=== PATIENT | female | born 1985 | race Two or more races ===

== ENCOUNTER 2023-08-05 09:14 | Outpatient (AMB) | payer OTHER, SELFPAY ==
[2023-08-05 09:35] VITALS: BMI 34.3
--- NOTE | 2023-08-05 09:35 | A.OFFVIS_ITS ---
VS Expanded 08/05/23 09:35 08/11/23 10:28 Height 5 ft 4 in 5 ft 4 in Weight 199 lb 11.821 oz 200 lb BMI 34.3 34.3 Intake Visit Reasons: DM/CONFIRMED Nutrition Presentation Details: Pt presents for MNT for T2DM. Pt was referred by pcp Lamin Hernandez, from [facility] Reports she was on farxiga but i stopped it due to pain - Pt was advised to notify prescribing providers of symptoms of reasons for self discontinuing med BG record- not avail Typical meal B: sausage, eggs, crackers or toast or bagel, banana , grapes , coffee with caramel ([employer] ) L: crackers /beelvita , dinner: air fryer (wings, pork chop, steak - taco, or rice/beans , water snacks : mini sand etoh/smoking: denies physical activity: daily life activities Reports taking MVI, biotin, vit d, vitamin c an cranberry BS Monitoring Most Recent Diabetes Results: No Data to Display TQI-Okdulxc-Lu.Jeor Equation Height: 5 ft 4 in Weight: 200 lb Resting Metabolic Rate: 1574.32 Calculated Activity Level: Sedentary Calories Needed to Maintain Weight: 1889.18 Diagnosis Nutrition problem #1: food nutri know defi As related to (etiology) #1: diagnosis As evidenced by (sign/symptom) #1: knowledge deficit of diet Learning/Education Readiness to learn: good [facility] Medical History (Updated 08/11/23 @ 10:[address], LDN) Dyshidrotic eczema Type 2 diabetes mellitus with renal manifestations Surgical History (Updated 08/11/23 @ 10:[address], LDN) History of cholecystectomy Hx of appendectomy (~08/2019) Assessment & Plan Assessment & Plan (1) T2DM (type 2 diabetes mellitus): Code(s): E11.9 - Type 2 diabetes mellitus without complications Category: Medical Plan: Wt: 91 Kg ( 07/2023 ) Est kcal needs as per MSJ: 1900 (40% carb, 30% protein/fat) Est fluid needs as per 25-30 ml/d: 2700 Est prot per day as per 1 g/kg bw: 91 Recommend fiber intake : 8-10 g per day and gradually increase to 25-28 g per day for women and 35-38 g for men or as tolerated Recommend sodium intake per day : less than 1500 mg less than 2000 mg Educated patient on: ( R = reviewed V = verbalizes understanding N/R = needs review N/A = not applicable * Food sources of carbohydrate, adequate serving sizes and its role in various health conditions: R * Differences between complex carbohydrates a simple carbohydrates, role of fiber in diet: R V N/R * Lean protein sources of foods: R * Differences between types of fats and role in diet (mono on saturated fat fatty acids, saturated fatty acids, trans fats): R V N/R * Food sources of sodium in salt and healthy modifications for heart health in [facility]: R V R/V * Vitamins and minerals: R V N/R * Healthy plate method concept: R * Physical activity: Benefits a precaution: R * Hypoglycemia protocol (rule of 15): R V N/R * Dietary prevention of Hyperglycemia: R Patient Instructions: Work on reducing total carb to 45-60 g at meal following heathy plate method ,read food labels, measure food portions Drink water with meals, reducing sugars from beverages Coding Level of Care Code Nutr Indiv Intake (02944) Diagnoses T2DM (type 2 diabetes mellitus) E11.9 Time Spent (min) 30
[2023-08-11 10:28] VITALS: BMI 34.3
== END 2023-08-05 10:15 | disposition home or self-care (01) ==
PROVIDERS: Visit Provider Dietitian, Registered
DX: E11.9 Type 2 diabetes mellitus without complications (principal)

== ENCOUNTER → 2023-08-05 09:14 | Outpatient (BNVA) | payer OTHER, SELFPAY | PROVIDERS: Visit Provider Dietitian, Registered | DX: E11.29 Type 2 diabetes mellitus with other diabetic kidney complication (principal); E66.9 Obesity, unspecified; Z68.34 Body mass index [BMI] 34.0-34.9, adult | CPT/HCPCS: 97802 ==

== ENCOUNTER 2023-09-09 09:50 | Outpatient (AMB) | payer OTHER, SELFPAY ==
--- NOTE | 2023-09-09 09:59 | A.OFFVIS_ITS ---
VS Expanded 09/09/23 10:01 Height 5 ft 4 in Weight 201 lb 11.567 oz BMI 34.6 Intake Visit Reasons: DM-confirmed Nutrition Presentation Details: Pt presents for MNT f/u for T2DM Pt reports dietary indiscretion related to vacation Pt reports having discussed farxiga with prescribing provider and Pt reports resuming farxiga as per MD , now on 10 mg/d fluids: 64 oz/d fruits 2x./day fried foods: airfryer typically physical activity:daily life activities, at work > 6000 steps /day not monitoring BG BS Monitoring Most Recent Diabetes Results: No Data to Display [facility] Medical History (Updated 08/11/23 @ 10:[address], LDN) Dyshidrotic eczema Type 2 diabetes mellitus with renal manifestations Surgical History (Updated 08/11/23 @ 10:[address], LDN) History of cholecystectomy Hx of appendectomy (~08/2019) Assessment & Plan Assessment & Plan (1) T2DM (type 2 diabetes mellitus): Code(s): E11.9 - Type 2 diabetes mellitus without complications Category: Medical Plan: Wt: 91 Kg ( 07/2023 ), 08/2023 Est kcal needs as per MSJ: 1900 (40% carb, 30% protein/fat) Est fluid needs as per 25-30 ml/d: 2700 Est prot per day as per 1 g/kg bw: 91 Recommend fiber intake : 8-10 g per day and gradually increase to 25-28 g per day for women and 35-38 g for men or as tolerated Recommend sodium intake per day : less than 1500 mg less than 2000 mg Educated patient on: ( R = reviewed V = verbalizes understanding N/R = needs review N/A = not applicable * Food sources of carbohydrate, adequate serving sizes and its role in various health conditions: R * Differences between complex carbohydrates a simple carbohydrates, role of fiber in diet: R V N/R * Lean protein sources of foods: R * Differences between types of fats and role in diet (mono on saturated fat fatty acids, saturated fatty acids, trans fats): R * Food sources of sodium in salt and healthy modifications for heart health in kidney health: R V R/V * Vitamins and minerals: R V N/R * Healthy plate method concept: R * Physical activity: Benefits a precaution: R * Hypoglycemia protocol (rule of 15): R * Dietary prevention of Hyperglycemia: R Patient Instructions: Choose high fiber foods and continue watching total carbs 45-60g or less per meal Resume monitroing your blood sugar, goal fasting blood sugar 80-130 unless otherwise specified by your doctor Coding Level of Care Code Nutr Indiv Subseq (09170) Diagnoses T2DM (type 2 diabetes mellitus) E11.9 Time Spent (min) 30
[2023-09-09 10:01] VITALS: BMI 34.6
== END 2023-09-09 10:32 | disposition home or self-care (01) ==
PROVIDERS: Visit Provider Dietitian, Registered
DX: E11.9 Type 2 diabetes mellitus without complications (principal)

== ENCOUNTER → 2023-09-09 09:50 | Outpatient (BNVA) | payer OTHER, SELFPAY | PROVIDERS: Visit Provider Dietitian, Registered | DX: E11.9 Type 2 diabetes mellitus without complications (principal) | CPT/HCPCS: 97803 ==

== ENCOUNTER 2023-12-10 14:18 | Outpatient (AMB) | payer OTHER, SELFPAY ==
[2023-12-10 14:37] VITALS: BMI 34.5
--- NOTE | 2023-12-10 14:37 | A.OFFVIS_ITS ---
VS Expanded 12/10/23 14:37 Height 5 ft 4 in Weight 200 lb 13.458 oz BMI 34.5 Intake Visit Reasons: DM/CONFIRMED Medication List - Last Reconciled 12/10/[address], JHONATHANN dapagliflozin propanediol (Farxiga) 10 mg PO DAILY metformin 500 mg PO BIDWMEAL Nutrition Presentation Details: Pt presents for MNT for T2DM Pt reports lack of meal planning, skips meals choosing low sugar beverages , with increased take out /fried food intake , 3-4 x week BS Monitoring Most Recent Diabetes Results: No Data to Display [facility] Medical History (Updated 08/11/23 @ 10:[address], JHONATHANN) Dyshidrotic eczema Type 2 diabetes mellitus with renal manifestations Surgical History (Updated 08/11/23 @ 10:[address], JHONATHANN) History of cholecystectomy Hx of appendectomy (~08/2019) Assessment & Plan Assessment & Plan (1) T2DM (type 2 diabetes mellitus): Code(s): E11.9 - Type 2 diabetes mellitus without complications Category: Medical Plan: Wt: 91 Kg ( 07/2023 ), 08/2023, 11/2023 Est kcal needs as per MSJ: 1900 (40% carb, 30% protein/fat) Est fluid needs as per 25-30 ml/d: 2700 Est prot per day as per 1 g/kg bw: 91 Recommend fiber intake : 8-10 g per day and gradually increase to 25-28 g per day for women and 35-38 g for men or as tolerated Recommend sodium intake per day : less than 1500 mg less than 2000 mg Educated patient on: ( R = reviewed V = verbalizes understanding N/R = needs review N/A = not applicable * Food sources of carbohydrate, adequate serving sizes and its role in various health conditions: R * Differences between complex carbohydrates a simple carbohydrates, role of fiber in diet: R V N/R * Lean protein sources of foods: R * Differences between types of fats and role in diet (mono on saturated fat fatty acids, saturated fatty acids, trans fats): R * Food sources of sodium in salt and healthy modifications for heart health in kidney health: R V R/V * Vitamins and minerals: R V N/R * Healthy plate method concept: R * Physical activity: Benefits a precaution: R * Hypoglycemia protocol (rule of 15): R * Dietary prevention of Hyperglycemia: R Patient Instructions: Have a meal replacement once a day Carry with a lunch bag with fruit/sand/nutritional bar Try new vegetable per week , include in sauces, in sandwiches Coding Level of Care Code Nutr Indiv Subseq (56297) Diagnoses T2DM (type 2 diabetes mellitus) E11.9 Time Spent (min) 30
== END 2023-12-10 15:11 | disposition home or self-care (01) ==
LOC: HO.ENCR 14:19
PROVIDERS: Visit Provider Dietitian, Registered
DX: E11.9 Type 2 diabetes mellitus without complications (principal)

== ENCOUNTER → 2023-12-10 14:18 | Outpatient (BNVA) | payer OTHER, SELFPAY | PROVIDERS: Visit Provider Dietitian, Registered | DX: E11.9 Type 2 diabetes mellitus without complications (principal) | CPT/HCPCS: 97803 ==